=== PATIENT | female | born 1945 | race Caucasian/White ===

== ENCOUNTER 2019-06-25 12:43 | Day surgery (SDC) | payer OTHER, MEDICARE ==
[2019-06-25] MEDS ORDERED: PROPOFOL 40 ML (14:14)
[2019-06-25] MEDS ORDERED: LIDOCAINE 100 MG SYRINGE (14:14)
== END 2019-06-25 16:17 | disposition home or self-care (01) ==
LOC: GIL 12:43
DX: R19.5 Other fecal abnormalities (principal); K64.8 Other hemorrhoids; K64.4 Residual hemorrhoidal skin tags
CPT/HCPCS: 45378; 88305